=== PATIENT | female | born 1995 | race African-American/Black ===

== ENCOUNTER 2020-10-31 12:57 | Outpatient (REF) | payer OTHER, SELFPAY ==
[2020-10-31 13:11] LABS: COVID-19 Test Positive (Negative)
== END 2020-10-31 12:58 | disposition home or self-care (01) ==
LOC: HO.LAB 12:57
PROVIDERS: Visit Provider Internal Medicine
DX: Z20.822 Contact with and (suspected) exposure to COVID-19 (principal)
CPT/HCPCS: 36415; 87635; C9803